=== PATIENT | female | born 1960 | race Caucasian/White ===

== ENCOUNTER 2024-01-12 05:48 | Day surgery (SDC) | payer OTHER, SELFPAY ==
[2024-01-12 06:11] VITALS: BP 154/89; PULSE 72; RESP 18; TEMP 36.4; O2SAT 97; BMI 34.0
[2024-01-12] MEDS: Lactated Ringers 1,000 ML 15 ML IV (06:26)
[2024-01-12] MEDS: Cefazolin 2 GM in 0.9% Normal Saline (100mL Bag) 100 ML IV (07:25)
[2024-01-12 07:47] VITALS: BP 118/75; BP 154/89; PULSE 73; RESP 15; TEMP 36.8; O2SAT 89
[2024-01-12 07:50] VITALS: BP 114/74; BP 154/89; PULSE 73; RESP 16; O2SAT 96
[2024-01-12 07:55] VITALS: BP 118/78; BP 154/89; PULSE 70; RESP 16; O2SAT 97
[2024-01-12 08:00] VITALS: BP 118/77; BP 154/89; PULSE 70; RESP 16; TEMP 36.9; O2SAT 98
--- NOTE | 2024-01-12 08:22 | DCINST_ITS ---
Discharge Instructions Diet Discharge Diet: No restrictions Activity Discharge Activity: Return to Normal Activity Dressing / Incision Call your doctor if you observe: Fever of 101 or Higher, Inability to urinate and Inability to have a bowel movement Follow Up Care Please Follow Up With: Vicki Katz MD Test Results: Test results from this visit will be discussed in further detail at your follow- up appointment, if applicable. Discharge Plan Admission Attending Provider: Vicki Katz Primary Care Provider: Zehra Wells Discharge Orders/Prescriptions Prescriptions: Continued alprazolam 0.25 mg tablet 0.25 mg PO TID PRN PRN (Reason: anxiety) albuterol sulfate 2.5 mg /3 mL (0.083 %) solution for nebulization 2.5 mg inhalation Q4H PRN PRN (Reason: wheezing) benazepril-hydrochlorothiazide 20-25 mg tablet 1 tab PO DAILY ipratropium-albuterol 0.5 mg-3 mg(2.5 mg base)/3 mL solution for nebulization 3 ml inhalation Q6H PRN (Reason: shortness of breath or wheezing) budesonide 0.5 mg/2 mL suspension for nebulization 0.5 mg inhalation BID PRN (Reason: shortness of breath) Trelegy Ellipta 200-62.5-25 mcg blister with device 1 ea INHALATION DAILY montelukast 10 mg tablet 10 mg PO QHS albuterol sulfate 90 mcg/actuation HFA aerosol inhaler 2 puff INHALATION Q4H PRN PRN (Reason: shortness of breath or wheezing) bupropion HCl 300 mg tablet extended release 24 hr 150 mg PO DAILY chlordiazepoxide-clidinium 5-2.5 mg capsule 1 cap PO TID diclofenac sodium 1 % gel 2 g topical DAILY PRN (Reason: pain) estradiol 0.0375 mg/24 hr patch semiweekly 1 patch transdermal WESA Rhofade 1 % cream 1 applic topical BID azelaic acid 15 % gel 1 applic topical BID metronidazole 0.75 % gel 1 applic topical BID Linzess 72 mcg capsule 72 mcg PO DAILY Gemtesa 75 mg tablet 75 mg PO DAILY Nucala 100 mg/mL auto-injector 100 mg subcut QMONTH loratadine [Claritin] 10 mg tablet 10 mg PO DAILY Probiotic 3 billion cell capsule 3,000 mmu cells PO DAILY Rx Instructions: administer with a meal prasterone (dhea) [DHEA] 25 mg capsule 25 mg PO DAILY magnesium 30 mg tablet 30 mg PO DAILY Metamucil 3.4 gram/5.4 gram powder 1 tbsp PO DAILY Rx Instructions: mix into at least 8 oz of water or juice before administering oregano oil 1,500 mg capsule 1,500 mg PO DAILY docusate sodium [Stool Softener] 100 mg capsule 100 mg PO DAILY turmeric 400 mg capsule 400 mg PO DAILY cholecalciferol (vitamin D3) [Vitamin D3] 50 mcg (2,000 unit) capsule 50 mcg PO DAILY zinc 50 mg tablet 50 mg PO DAILY Referrals / Follow Up: Zehra Wells MD [Primary Care Provider] - Disposition Disposition (needs filled in before D/C Order can be placed): Home, Self Care
[2024-01-12 08:53] VITALS: BP 154/89
--- NOTE | 2024-01-12 08:54 | PCM.OPRPT ---
Report of Operation Date of Procedure: 01/12/24 Pre-Operative Diagnosis: Urethral stricture, urgency and frequency Post-Operative Diagnosis: Same Surgery/Procedure Performed:: Urethral dilation, cystoscopy Surgeon: Vicki Katz Type of Anesthesia: MAC Specimen's removed: None Description of Procedure: The patient is a 63-year-old female with significant urgency and frequency who presents for evaluation under anesthesia as a urethral narrowing was identified in the office. Informed consent was obtained. The patient was taken to the operating room and placed on the operating room table. Anesthesia monitored the head, neck, airway, IV access and vital signs throughout the case. Once anesthesia was appropriately administered, the patient was placed into dorsolithotomy position and was prepped and draped in usual sterile fashion. The urethra was dilated sequentially from 12 Australian to 30 Australian without much resistance. It is more likely that she was very anxious in the office and her pelvic floor was tightening making it difficult to pass the cystoscope. At this time the cystoscope was inserted through the urethra under direct visualization into the urinary bladder. The bladder mucosa was visualized in its entirety revealing no evidence of mass, erythema, ulceration or foreign body. There is no other abnormality identified. The bladder was then emptied and the cystoscope was removed. She was awakened and taken to the recovery room in good condition. There were no complications during this procedure. Grafts/Implants Used: None Complications None Admit VTE Documentation VTE Present on Admission: Yes VTE Mechan Device Prophylaxis: SCD's VTE Pharm Prophylaxis ordered?: No Reason prophylaxis not ordered:: Treatment Not Indicated
== END 2024-01-12 08:54 | disposition home or self-care (01) ==
LOC: SDC 05:51 → AC 05:52
PROVIDERS: PCP Family Medicine; Referring Provider Urology; Visit Provider Urology
PROC: 0T7D8ZZ Dilation of Urethra, Via Natural or Artificial Opening Endoscopic (ICD-10-PCS; CPT 52281; principal; 2024-01-12 07:20)
DX: N35.92 Unspecified urethral stricture, female (principal); N39.46 Mixed incontinence; N32.81 Overactive bladder; R35.1 Nocturia; I10 Essential (primary) hypertension; J45.909 Unspecified asthma, uncomplicated; E78.5 Hyperlipidemia, unspecified; Z79.899 Other long term (current) drug therapy
CPT/HCPCS: 52281; 00910; J7120; J2405